=== PATIENT | female | born 1960 | race Caucasian/White ===

== ENCOUNTER → 2020-03-16 | Outpatient (CLI) | payer OTHER ==
[~2020-03-16] MED LIST: CO-ENZYME Q-1010 MG PO; LISINOPRIL20 MG PO; MULTI VITAMIN1 EACH PO
== END ==
LOC: ULTRA 08:09
PROVIDERS: ATTEND Nurse Practitioner
DX: K80.80 Other cholelithiasis without obstruction (principal); K82.8 Other specified diseases of gallbladder; N28.89 Other specified disorders of kidney and ureter

== ENCOUNTER → 2020-03-28 | Outpatient (CLI) | payer OTHER ==
[~2020-03-28] VITALS: Ht 165.1 cm; Wt 68.0 kg
== END | disposition home or self-care (01) ==
LOC: OR → LAB 08:00 → EDSTATUS 03-30 10:15 → OR 03-30 10:31
PROVIDERS: ATTEND Surgery
DX: Z01.818 Encounter for other preprocedural examination (principal); K81.9 Cholecystitis, unspecified; Z11.59 Encounter for screening for other viral diseases; I10 Essential (primary) hypertension; Z87.891 Personal history of nicotine dependence

== ENCOUNTER → 2020-03-29 | Outpatient (CLI) | payer OTHER | LOC: RAD 13:28 | PROVIDERS: ATTEND Nurse Practitioner | DX: C64.9 Malignant neoplasm of unspecified kidney, except renal pelvis (principal) ==

== ENCOUNTER → 2020-09-20 | Outpatient (CLI) | payer OTHER | LOC: RAD 14:58 | PROVIDERS: ATTEND Urology | DX: Z85.528 Personal history of other malignant neoplasm of kidney (principal) ==

== ENCOUNTER → 2021-03-14 | Outpatient (CLI) | payer OTHER | LOC: RAD 15:37 | PROVIDERS: ATTEND Urology | DX: Z85.528 Personal history of other malignant neoplasm of kidney (principal) ==